=== PATIENT | male | born 1960 | race Caucasian/White ===

== ENCOUNTER 2019-03-28 06:43 | Day surgery (SDC) | payer OTHER ==
--- NOTE | 2019-03-27 16:34 | RAD REPORT ---
EXAM DESCRIPTION: RAD - Chest Pa And Lat (2 Views) - 03/27/2019 4:29 pm CLINICAL HISTORY: preop Chest pain. COMPARISON: No comparisons FINDINGS: The lungs are clear. The heart is normal in size. No displaced fractures. IMPRESSION: No acute or concerning finding suspected.
[2019-03-27 16:57] LABS: Absolute Lymphocytes (CBC) 4.4 K/uL (0.7-4.9); Basophils % 0.8 % (0-1.3); Hematocrit 45.9 % (39.6-49.0); Lymphocytes % 45.6 % (15.3-44.8); MPV 8.4 fL (7.6-11.3); RBC Red Blood Cell Count 4.85 M/uL (4.33-5.43)
[2019-03-27 17:11] LABS: Potassium 3.7 mmol/L (3.5-5.1)
[2019-03-28] MEDS ORDERED: Ringers Lactate 1,000 ML IV ONE (06:47)
[2019-03-28] MEDS ORDERED: MIDAZOLAM HCL 2 MG/2 ML INJ ONE (07:30)
[2019-03-28] MEDS ORDERED: FENTANYL CITR 100 MCG/2 ML ONE (07:30)
[2019-03-28] MEDS ORDERED: LIDOCAINE 2% MPF 5 ML VIAL ONE (07:30)
[2019-03-28] MEDS ORDERED: PROPOFOL 200 MG/20 ML VIAL IV ONE (07:30)
[2019-03-28] MEDS ORDERED: CEFAZOLIN/SWI 1gm 1 GM/10 ML SYR ONE (07:39)
--- NOTE | 2019-03-28 07:44 | EKG ---
Test Date: 2019-03-27 Test Time: 16:12:53 Continuous Improvement Intern: EILEEN MEASUREMENT RESULTS: Intervals: Rate: 47 MA: 154 QRSD: 84 QT: 436 QTc: 385 [place]: P: 48 MA: 154 QRS: 36 T: 29 INTERPRETIVE STATEMENTS: Marked sinus bradycardia Abnormal ECG No previous ECG available for comparison Electronically Signed On 03-28-19 07:44:38 HAND SAMPLE [employer]KER by Rehan Birmingham
[2019-03-28] MEDS ORDERED: dexAMETHasone 10 MG/ML VIAL ONE (08:26)
[2019-03-28] MEDS ORDERED: KETOROLAC 30 MG/ML INJ ONE (08:26)
[2019-03-28] MEDS ORDERED: ONDANSETRON 4 MG/2 ML VIAL ONE (08:28)
--- NOTE | 2019-03-28 09:43 | P.BOP ---
Preoperative diagnosis: tender thrombosed external hemorroid with bleeding Postoperative diagnosis: same Primary procedure: 1. examination under anesthesis, 2. anoscopy, 3. rigid proctoscopy Secondary procedure: 4. external Hemorrhoidectomy Estimated blood loss: <10cc Specimen: hemorrhoid with anoderm Findings: internal and external hemorrhoids Anesthesia: General Drain(s): Other (surgicell) Transferred to: Recovery Room Condition: Good
[2019-03-28] MEDS ORDERED: CODEINE 30MG/APAP 300MG TAB ONE (10:17)
[2019-03-28 11:32] VITALS: O2SAT 100
[2019-03-28 11:34] VITALS: BP 120/63; TEMP 98
--- NOTE | 2019-03-28 22:12 | DS ---
Date of Discharge: 03/28/2019 Diagnosis: Thrombosed external hemorrhoid with bleeding. Procedures: EUA, anoscopy, rigid proctoscopy, external hemorrhoidectomy. Disposition: Home. Activities: As tolerated. No heavy lifting. Followup: Follow up in my office in 1 week. Call for appointment [phone]. Sitz baths 4 times a da y after every bowel movement. Medications: Include Tylenol No. 3 q.4 hours p.r.n. pain, Cipro 500 p.o. q.12. MISTY/ABDI Voice ID: [id number] Report ID: [id number]
--- NOTE | 2019-03-28 22:12 | OP ---
Date of Procedure: 03/28/2019 Surgeon: Amaury Cooper MD Preoperative Diagnosis: Tender thrombosed external hemorrhoid with bleeding. Postoperative Diagnosis: Tender thrombosed external hemorrhoid with bleeding. Procedure Performed: 1.Examination under anesthesia. 2.Anoscopy. 3.Rigid proctoscopy. 4.External hemorrhoidectomy, 1 bundle posterolateral. Estimated Blood Loss: Less than 10 mL. Specimen: Hemorrhoids with anoderm. Findings: Internal and external hemorrhoids. Anesthesia: General plus local. Packings: Surgicel. Indication For Procedure: This is the case of a 58-year-old patient, who comes to us with tender hem orrhoids. Patient has on and off bleeding from that area. The benefits, alternatives, and risks of examination under anesthesia, anoscopy, proctoscopy, possible hemorrhoidectomy were fully explained t o the patient, which include, but are not limited to infection, bleeding, damage to adjacent structur es, anesthesia complications, anal stricture, anal incontinence, recurrence, OK, and even . He also understands this may not relieve any symptoms. He might need more than one surgical interventio n. He understands also we might have multiple hemorrhoids, not all of them have to be removed. He h as to help us with avoiding constipation, avoiding trauma, losing some weight, avoiding heavy lifting . He understood and signed a consent. Description Of Procedure: Patient was brought to the operating room, placed in supine position. Ane sthesia was done without complication. The patient was placed in lithotomy position with proper prot ection. A time-out was called. The area was prepped and draped in a sterile fashion. Rectal examin ation was done followed by rigid proctoscopy advanced in the center of the lumen after insufflation w ithout resistance up to about 15 cm. We noticed the patient to have internal and external hemorrhoid s. There is 1 that is large, it feels thrombosed and it had some bleeding on the posterolateral area . Happened to be that is the one he is pointing out as the bulging hemorrhoid. We see some other in ternal and external hemorrhoids. The other ones are medium size, no bleeding at this moment. Hopefu lly with conservative treatment it can be treated. If not, then it will be done on some other occasi on. At that moment, I placed an anoscope with a window on the side and confirmed the same findings. We identified the bleeding and hemorrhoids partially thrombosed, hard and we opened the anoderm. Se parated the hemorrhoidal plexus from the anal sphincter, then transect the area of the pathology. Th e sphincter was protected at all times. The anoderm was approximated with a 3-0 chromic. Specimen s ent to the pathologist. Hemostasis obtained. Local anesthetic was applied. Surgicel was placed ove r the area. No bleeding. At that moment, I proceeded to remove the anoscope. Sponge count and inst rument counts were correct. Patient tolerated the procedure well. Patient was sent to the Recovery in stable condition. MISTY/ABDI Voice ID: [id number] Report ID: [id number]
== END 2019-03-28 11:20 | disposition home or self-care (01) ==
LOC: OR 06:43
PROVIDERS: ATTEND Surgery
PROC: 0DJD8ZZ Inspection of Lower Intestinal Tract, Via Natural or Artificial Opening Endoscopic (ICD-10-PCS; 2019-03-28)
PROC: 06BY0ZC Excision of Hemorrhoidal Plexus, Open Approach (ICD-10-PCS; principal; 2019-03-28 08:15)
DX: K64.5 Perianal venous thrombosis (principal); K64.8 Other hemorrhoids; I10 Essential (primary) hypertension; Z82.49 Family history of ischemic heart disease and other diseases of the circulatory system
CPT/HCPCS: 93005; 85025; 80048; 36415; 88304; 71046; 46320; 45300; J2704; J2250; J3010; J1100; J0690; J7120; J2405

== ENCOUNTER 2024-12-25 07:04 | Day surgery (SDC) | payer OTHER ==
--- NOTE | 2024-12-14 11:36 | RAD REPORT ---
Procedure: Chest Single View HISTORY: Preop. Hypertension COMPARISON: 2019 FINDINGS: The lungs appear clear of acute infiltrate. No significant pleural effusion noted. The heart is normal size. IMPRESSION: No acute abnormality is displayed.
[2024-12-14 11:52] LABS: Absolute Lymphocytes (CBC) 2.0 K/uL (0.7-4.9); Hematocrit 41.5 % (39.6-49.0); Hemoglobin 14.1 g/dL (13.6-17.9); MCH 31.9 pg (27.0-35.0); MCHC 34.0 g/dL (32.0-36.0); MCV 93.9 fL (80-100); MPV 8.5 fL (7.6-11.3); Nucleated RBC Absolute Count 0.0 (0-0); Nucleated Red Blood Cells % 0.1 % (0-0); RBC Red Blood Cell Count 4.42 M/uL (4.33-5.43); Urine Culture Reflex Order REFLEXED; Urine Microscopic Reflex YN NO UMIC; White Blood Count 10.20 thou/uL (4.3-10.9)
[2024-12-14 12:04] LABS: PT Prothrombin Time 12.1 SECONDS (10-13.0); Protime INR 1.07
[2024-12-14 12:09] LABS: Anion Gap 7.8 mEq/L (5.0-15.0); BUN Blood Urea Nitrogen 21.0 mg/dL (7-18); Glucose Level 102.0 mg/dL (74-106); Potassium 3.8 mEq/L (3.5-5.1)
[2024-12-25] MEDS ORDERED: Ringers Lactate 1,000 ML IV ONE (07:17)
[2024-12-25] MEDS ORDERED: FENTANYL CITR 100 MCG/2 ML ONE (08:00)
[2024-12-25] MEDS ORDERED: MIDAZOLAM HCL 2 MG/2 ML INJ ONE (08:00)
[2024-12-25] MEDS ORDERED: ONDANSETRON 4 MG/2 ML VIAL ONE (08:00)
[2024-12-25] MEDS ORDERED: LIDOCAINE 1% MPF 5 ML VIAL ONE (08:01)
[2024-12-25] MEDS ORDERED: EPHEDRINE SULF 50 MG/ML VIAL ONE (08:37)
[2024-12-25] MEDS: CEFAZOLIN SODIUM 1 GM/VIAL ONE (08:40)
[2024-12-25] MEDS ORDERED: GLYCOPYRROLATE 0.2 MG/ML SYR ONE (08:58)
[2024-12-25] MEDS ORDERED: CODEINE 30MG/APAP 300MG TAB PO PRN (09:28)
[2024-12-25 09:34] VITALS: BP 129/83
--- NOTE | 2024-12-25 09:34 | P.OP ---
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 Procedure note: The patient was consented in the preoperative holding area before being transferred to the operative suite where general anesthesia was induced. He was given Ancef 2 g IV antimicrobial prophylaxis, and pneumoboots were provided for DVT prophylaxis. He was placed in the high lithotomy position, padded and secured to the table appropriately. His genitalia was elevated out of the perineal region using an [place] drape and a transrectal ultrasound probe was placed via his anus into his rectum with the prostate visualized accordingly. A stepper device was used to hold the probe in position and situated such that I was able to visualize the entirety of the gland from the seminal vesicles at the base all the way to the apex and perineal region. Sagittal and axial visualization was performed. I started by targeting the patient's left John prostate in the mid gland anteriorly and laterally where I navigated a fiducial marker under ultrasound guidance via the perineum and into the prostate into the desired location. Once this was placed, I then targeted the contralateral right John prostate in the mid gland anterolaterally and similarly placed a second fiducial marker in that location. I then returned the stepper device back to the midline position and visualize the direct insertion of the SpaceOAR injection needle primed with saline placed via the skin of the perineum and down over a very prominent rectal hump entering the prerectal fat plane beyond the urogenital diaphragm. I was able to navigate the needle through that plane into the mid base region of the prostate where I aspirated and confirmed no blood or succus before injecting a bolus of saline which did distribute in the midline and symmetrically bilaterally. I confirmed the positioning of the needle then and axial section before the saline syringe and associating the SpaceOAR injection components. I then slowly injected the SpaceOAR components and observed the gel mixture to distribute bilaterally across the prostate from the base into the apex. I then remove the needle carefully and then the transrectal ultrasound probe. I cleansed away the Betadine and held pressure over the needle insertion sites through the perineum before taking the patient out of the lithotomy position. He was then awakened from general anesthesia before being transferred to a stretcher. He was then transferred to the recovery room in good condition. Complications: None Discharge disposition: Follow-up should be established typically about 6 months after completion of radiation therapy. Sooner follow-up may be planned if bothersome LUTS associated with the radiation treatment develop.
[2024-12-25 09:58] VITALS: TEMP 97.4; O2SAT 97
== END 2024-12-25 10:37 | disposition home or self-care (01) ==
LOC: OR 07:04
PROVIDERS: ATTEND Urology
PROC: 0VH43YZ Insertion of Other Device into Prostate and Seminal Vesicles, Percutaneous Approach (ICD-10-PCS; 2024-12-25)
PROC: 0VH43YZ Insertion of Other Device into Prostate and Seminal Vesicles, Percutaneous Approach (ICD-10-PCS; principal; 2024-12-25 08:15)
DX: C61 Malignant neoplasm of prostate (principal)
CPT/HCPCS: 55876; 87088; 85025; 87086; 80048; 36415; 85610; 81003; 71045; 55874; J2704; J2003; J2250; J3010; J1100; J2405; J7120; J0690; C1889